=== PATIENT | female | born 1950 | race African-American/Black ===

== ENCOUNTER 2024-04-13 23:11 | Inpatient (IN) | payer MEDICARE, OTHER ==
[~2024-04-13] VITALS: Ht 160 cm; Wt 87.5 kg
[~2024-04-13 23:11] MED LIST: ATEN-42 PO; EXEN2VIA SQ; INSLIS SQ; INSU3INS6 SQ; NIFE90TA69 PO; ROSU20TA2 PO
[2024-04-14] MEDS ORDERED: HEPARIN 5000 UNITS/ML VIAL IV ONE (01:00)
[2024-04-14 01:40] LABS: BASOPHILS % 0.7 % (0.0-2.0); EOSINOPHILS % 1.6 % (0.0-5.0); HEMATOCRIT. 26.6 % (36.0-48.0); HEMOGLOBIN. 8.7 g/dL (12.0-16.0); LYMPHOCYTES % 16.5 % (20.0-50.0); MEAN CORPUSCULAR HEMOGLOBIN 28.9 pg (28.0-32.0); MEAN CORPUSCULAR HGB CONC 32.7 g/dL (31.0-37.0); MEAN CORPUSCULAR VOLUME 88.3 fL (81.0-99.0); MONOCYTES % 9.2 % (2.0-8.0); PLATELET 145 x1000/uL (130-400); RED BLOOD CELL COUNT 3.01 mill/uL (4.2-5.4); RED CELL DISTRIBUTION WIDTH 14.5 % (11.6-14.6); WHITE BLOOD COUNT 5.9 x1000/uL (4.5-11.0)
[2024-04-14 01:48] LABS: POTASSIUM 4.8 mEq/L (3.5-5.1)
[2024-04-14 02:06] LABS: CREATININE 7.2 mg/dL (0.6-1.0); INR 0.9; PARTIAL THROMBOPLASTIN TIME 27.5 sec (23.4-31.0); PROTHROMBIN TIME 10.6 sec (9.6-11.0)
[2024-04-14] MEDS ORDERED: HEPARIN 80 UNITS/KG BOLUS IV NR (02:30)
[2024-04-14] MEDS ORDERED: HEPARIN BOLUS PRN aPTT 37-44 IV (02:30)
[2024-04-14] MEDS: HEPARIN BOLUS PRN aPTT <36 IV (05:50)
[2024-04-14] MEDS: HEPARIN 25,000 UNITS PREMIX 250 ML IV SCH (06:02)
[2024-04-14] MEDS: CLONIDINE 0.1MG TABLET PO NR (06:45)
[2024-04-14] MEDS ORDERED: IOHEXOL-350 100 ML BOTTLE ONE (06:46)
[2024-04-14 07:15] LABS: CLARITY URINE CLEAR (CLEAR); COLOR URINE YELLOW (YELLOW); GLUCOSE URINE NEGATIVE (NEGATIVE); KETONES URINE NEGATIVE (NEGATIVE); LEUKOCYTE ESTERASE URINE NEGATIVE (NEGATIVE); NITRITE URINE NEGATIVE (NEGATIVE); OCCULT BLOOD URINE 1+ (NEGATIVE); PH URINE 7.5 (4.5-8.0); PROTEIN URINE 1+ (NEGATIVE); SPECIFIC GRAVITY URINE 1.011 (1.005-1.030); UROBILINOGEN URINE 0.2 E.U./dL (0.2-1.0)
[2024-04-14 07:34] LABS: SQUAMOUS EPITHELIAL CELL URINE 2+ /lpf (RARE/1+)
[2024-04-14 07:35] LABS: BACTERIA URINE 1+
[2024-04-14 07:37] LABS: RBC URINE 0-2 /hpf (0-2); WBC URINE 0-2 /hpf (0-2)
[2024-04-14 08:00] VITALS: BP 162/51; PULSE 60; PULSE 65; RESP 18; TEMP 35.61396; TEMP 35.6396; O2SAT 100
[2024-04-14 12:00] VITALS: BP 135/88; PULSE 65; RESP 18; TEMP 35.8362; O2SAT 98
[2024-04-14] MEDS ORDERED: ACETAMINOPHEN 325MG TABLET PO PRN (13:30)
[2024-04-14] MEDS ORDERED: ZOLPIDEM TARTRATE 5MG TABLET PO PRN (13:30)
[2024-04-14] MEDS ORDERED: IPRATROPIUM/ALBUTEROL 0.5-3(2.5)MG/3ML NEB NEB PRN (13:30)
[2024-04-14] MEDS ORDERED: ONDANSETRON HCL 4MG/2ML INJ IV PRN (13:30)
[2024-04-14] MEDS ORDERED: DEXTROSE 50% WATER 50ML SYRINGE IV PRN (13:45)
[2024-04-14] MEDS: PANTOPRAZOLE 40MG DR TABLET PO SCH (14:48)
[2024-04-14 15:41] LABS: BASOPHILS % 0.6 % (0.0-2.0); EOSINOPHILS % 1.8 % (0.0-5.0); HEMATOCRIT. 29.1 % (36.0-48.0); HEMOGLOBIN. 9.4 g/dL (12.0-16.0); LYMPHOCYTES % 20.7 % (20.0-50.0); MEAN CORPUSCULAR HEMOGLOBIN 28.7 pg (28.0-32.0); MEAN CORPUSCULAR HGB CONC 32.4 g/dL (31.0-37.0); MEAN CORPUSCULAR VOLUME 88.5 fL (81.0-99.0); MEAN PLATELET VOLUME 10.8 fl (7.4-10.4); MONOCYTES % 7.3 % (2.0-8.0); NEUTROPHILS % 69.6 % (40.0-76.0); PLATELET 146 x1000/uL (130-400); RED BLOOD CELL COUNT 3.29 mill/uL (4.2-5.4); RED CELL DISTRIBUTION WIDTH 14.3 % (11.6-14.6); WHITE BLOOD COUNT 4.6 x1000/uL (4.5-11.0)
[2024-04-14 15:49] LABS: POTASSIUM 5.2 mEq/L (3.5-5.1)
[2024-04-14 15:51] LABS: CALCIUM 9.8 mg/dL (8.7-10.4)
[2024-04-14 16:00] VITALS: BP 157/52; PULSE 62; RESP 18; TEMP 35.72508; O2SAT 99
[2024-04-14 16:02] LABS: CREATININE 6.9 mg/dL (0.6-1.0)
[2024-04-14] MEDS: BLOOD SUGAR DIAGNOSTIC STRIP TEST SCH (17:20)
[2024-04-14] MEDS: INSULIN LISPRO 100 UNITS/ML SUBCUT SCH (19:07)
[2024-04-14 20:00] VITALS: BP 183/67; PULSE 68; RESP 18; TEMP 36.3918; O2SAT 100
[2024-04-14] MEDS: CLONIDINE 0.1MG TABLET PO PRN (22:10)
[2024-04-14 23:40] VITALS: PULSE 68; RESP 19; TEMP 36.3918; O2SAT 100
[2024-04-14 23:45] VITALS: BP 183/67; PULSE 68; RESP 18; TEMP 36.3918; O2SAT 100
[2024-04-15] VITALS (7 sets, daily range): BP systolic 130–153; BP diastolic 54–70; PULSE 60–98; RESP 14–19; TEMP 36.3918–36.78072; O2SAT 98–100
[2024-04-15] MEDS: DEXT 5%/0.9% NACL 1,000 ML IV SCH (00:01)
[2024-04-15 08:16] LABS: BASOPHILS % 0.7 % (0.0-2.0); EOSINOPHILS % 2.3 % (0.0-5.0); HEMATOCRIT 29.6 % (36.0-48.0); HEMATOCRIT. 29.6 % (36.0-48.0); HEMOGLOBIN 9.2 g/dL (12.0-16.0); HEMOGLOBIN. 9.2 g/dL (12.0-16.0); LYMPHOCYTES % 18.9 % (20.0-50.0); MEAN CORPUSCULAR HEMOGLOBIN 27.8 pg (28.0-32.0); MEAN CORPUSCULAR HGB CONC 31.3 g/dL (31.0-37.0); MEAN CORPUSCULAR VOLUME 88.9 fL (81.0-99.0); MEAN PLATELET VOLUME 10.6 fl (7.4-10.4); MONOCYTES % 8.6 % (2.0-8.0); NEUTROPHILS % 69.5 % (40.0-76.0); PLATELET 198 x1000/uL (130-400); RED BLOOD CELL COUNT 3.33 mill/uL (4.2-5.4); RED CELL DISTRIBUTION WIDTH 14.7 % (11.6-14.6); WHITE BLOOD COUNT 6.1 x1000/uL (4.5-11.0)
[2024-04-15 08:20] LABS: POTASSIUM 4.6 mEq/L (3.5-5.1)
[2024-04-15 08:21] LABS: CALCIUM 9.6 mg/dL (8.7-10.4)
[2024-04-15 08:31] LABS: CREATININE 6.8 mg/dL (0.6-1.0)
[2024-04-15] MEDS: ATENOLOL 25MG TABLET PO SCH (10:24)
[2024-04-15] MEDS: NIFEDIPINE XL 90MG TAB PO SCH (10:25)
[2024-04-15] MEDS ORDERED: THROMBIN (BOVINE) 5000 UNITS/VIAL TOP ONE (11:56)
[2024-04-15 12:35] LABS: THYROID STIMULATING HORMONE 8.66 uIU/mL (0.55-4.78)
[2024-04-15] MEDS: SEVELAMER CARBONATE 800 MG TABLET PO SCH (12:50)
[2024-04-15] MEDS ORDERED: FENTANYL CITRATE/PF 50MCG/ML 2ML VIAL ONE (13:12)
[2024-04-15] MEDS ORDERED: PROPOFOL 200MG/20ML VIAL IV ONE (13:12)
[2024-04-15] MEDS ORDERED: CEFAZOLIN SODIUM 1000MG/VIAL ONE (13:16)
[2024-04-15] MEDS ORDERED: EPHEDRINE SULFATE 50MG/ML VIAL ONE (13:16)
[2024-04-15] MEDS ORDERED: LIDOCAINE HCL 1% 20ML VIAL ONE (14:16)
[2024-04-15] MEDS ORDERED: GLYCOPYRROLATE 0.2 MG/ML 2ML VIAL ONE (14:26)
[2024-04-15] MEDS ORDERED: PHENYLEPHRINE HCL 10MG/ML 1ML IV ONE (14:35)
[2024-04-15] MEDS ORDERED: GENTAMICIN/NS IRRIGATION 500 ML IR NR (15:00)
[2024-04-15] MEDS ORDERED: ALTEPLASE 2MG/VIAL ONE (15:07)
[2024-04-15] MEDS ORDERED: STERILE WATER FOR INJECTION 10ML VIAL ONE (15:08)
[2024-04-15] MEDS ORDERED: IODIXANOL 320MG/ML 100 ML BOTTLE IV ONE (15:35)
[2024-04-15] MEDS ORDERED: MORPHINE SULFATE 4 MG/ML INJ (FOR IV/IM USE) IV PRN (17:00)
[2024-04-15] MEDS: ENOXAPARIN 30MG/0.3ML SYR SUBCUT SCH (17:00)
[2024-04-15] MEDS ORDERED: NALOXONE HCL 0.4MG/ML VIAL IV PRN (20:30)
[2024-04-15] MEDS: ATORVASTATIN CALCIUM 20MG TABLET PO SCH (20:38)
[2024-04-15] MEDS: EPOETIN ALFA-EPBX 4,000 UNIT/ML VIAL SUBCUT SCH (21:00)
[2024-04-16] VITALS (9 sets, daily range): BP systolic 102–135; BP diastolic 58–89; PULSE 64–79; RESP 15–22; TEMP 36.3918–36.9474; O2SAT 99–100
[2024-04-16 06:52] LABS: CALCIUM 9.1 mg/dL (8.7-10.4); POTASSIUM 5.8 mEq/L (3.5-5.1)
[2024-04-16 07:26] LABS: HEMATOCRIT 26.3 % (36.0-48.0); HEMATOCRIT. 26.3 % (36.0-48.0); MEAN CORPUSCULAR HGB CONC 30.4 g/dL (31.0-37.0); MEAN CORPUSCULAR VOLUME 92.1 fL (81.0-99.0); MEAN PLATELET VOLUME 11.4 fl (7.4-10.4); PLATELET 171 x1000/uL (130-400); RED BLOOD CELL COUNT 2.85 mill/uL (4.2-5.4); RED CELL DISTRIBUTION WIDTH 15.4 % (11.6-14.6); WHITE BLOOD COUNT 8.1 x1000/uL (4.5-11.0)
[2024-04-16 07:28] LABS: DIFFERENTIAL COMMENT 1
[2024-04-16] MEDS: FOLIC ACID/VITAMIN B COMP W-C TABLET PO SCH (08:17)
[2024-04-16 08:21] LABS: CREATININE 7.7 mg/dL (0.6-1.0)
[2024-04-16] MEDS ORDERED: NON FORMULARY PATIENT HOME MED XX SCH (08:30)
[2024-04-16 10:42] LABS: POTASSIUM 5.3 mEq/L (3.5-5.1)
[2024-04-16 10:43] LABS: CALCIUM 9.4 mg/dL (8.7-10.4)
[2024-04-16] MEDS: SODIUM ZIRCONIUM CYCLOSILICATE 10GM/PACKET PO NR (11:01)
[2024-04-16] MEDS: APIXABAN 5 MG TABLET PO SCH (11:02)
[2024-04-16] MEDS: INSULIN LISPRO 100 UNITS/ML SUBCUT NR (11:04)
[2024-04-16 11:26] LABS: CREATININE 7.8 mg/dL (0.6-1.0)
[2024-04-16] MEDS ORDERED: ALBUTEROL (0.5%) 2.5MG/0.5ML NEB HHN NR (12:00)
[2024-04-16] MEDS ORDERED: DEXTROSE 50% WATER 50ML SYRINGE IV PRN (12:15)
[2024-04-16] MEDS: INSULIN GLARGINE 100 UNITS/ML SUBCUT SCH ×2 (12:55→17:50)
[2024-04-16] MEDS: INSULIN LISPRO 100 UNITS/ML SUBCUT SCH ×2 (12:56→17:51)
[2024-04-16] MEDS: BLOOD SUGAR DIAGNOSTIC STRIP TEST SCH (16:30)
[2024-04-16 17:12] LABS: PLATELET ESTIMATE NORMAL
[2024-04-17] VITALS (8 sets, daily range): BP systolic 101–145; BP diastolic 40–100; PULSE 60–72; RESP 14–19; TEMP 36.44736–36.78072; O2SAT 96–100
[2024-04-17 06:51] LABS: POTASSIUM 4.5 mEq/L (3.5-5.1)
[2024-04-17 06:52] LABS: CALCIUM 8.9 mg/dL (8.7-10.4)
[2024-04-17 07:27] LABS: CREATININE 8.7 mg/dL (0.6-1.0)
[2024-04-17] MEDS: LACTULOSE 20G/30ML UDC PO SCH (11:15)
[2024-04-17] MEDS: DOCUSATE SODIUM 100MG CAPSULE PO SCH (11:15)
== END 2024-04-17 18:15 | disposition home or self-care (01) | DRG 270 ==
LOC: ER 23:11 → 6EST 04-14 03:07 → EDBEDREQTM 04-14 03:10 → EDBEDREQ 04-14 03:10 → 3WST 04-15 20:23
PROVIDERS: ADMIT Internal Medicine; ATTEND Internal Medicine
PROC: 3E1M39Z Irrigation of Peritoneal Cavity using Dialysate, Percutaneous Approach (ICD-10-PCS; 2024-04-14)
PROC: 047S3ZZ Dilation of Left Posterior Tibial Artery, Percutaneous Approach (ICD-10-PCS; principal; 2024-04-15)
PROC: 04CQ3ZZ Extirpation of Matter from Left Anterior Tibial Artery, Percutaneous Approach (ICD-10-PCS; 2024-04-15)
PROC: 047Q3ZZ Dilation of Left Anterior Tibial Artery, Percutaneous Approach (ICD-10-PCS; 2024-04-15)
PROC: 04CL3ZZ Extirpation of Matter from Left Femoral Artery, Percutaneous Approach (ICD-10-PCS; 2024-04-15)
PROC: B41G1ZZ Fluoroscopy of Left Lower Extremity Arteries using Low Osmolar Contrast (ICD-10-PCS; 2024-04-15)
PROC: 3E05317 Introduction of Other Thrombolytic into Peripheral Artery, Percutaneous Approach (ICD-10-PCS; 2024-04-15)
PROC: 3E1M39Z Irrigation of Peritoneal Cavity using Dialysate, Percutaneous Approach (ICD-10-PCS; 2024-04-15)
PROC: 3E1M39Z Irrigation of Peritoneal Cavity using Dialysate, Percutaneous Approach (ICD-10-PCS; 2024-04-16)
PROC: 5A1D70Z Performance of Urinary Filtration, Intermittent, Less than 6 Hours Per Day (ICD-10-PCS; 2024-04-17)
DX: E11.51 Type 2 diabetes mellitus with diabetic peripheral angiopathy without gangrene (principal); N18.6 End stage renal disease; E87.1 Hypo-osmolality and hyponatremia; I12.0 Hypertensive chronic kidney disease with stage 5 chronic kidney disease or end stage renal disease; C56.9 Malignant neoplasm of unspecified ovary; E87.20 Acidosis, unspecified; E87.5 Hyperkalemia; I10 Essential (primary) hypertension; D64.9 Anemia, unspecified; E11.40 Type 2 diabetes mellitus with diabetic neuropathy, unspecified; R26.9 Unspecified abnormalities of gait and mobility; R53.81 Other malaise; D72.829 Elevated white blood cell count, unspecified; R00.0 Tachycardia, unspecified; E78.5 Hyperlipidemia, unspecified; Z87.891 Personal history of nicotine dependence; Z99.2 Dependence on renal dialysis; Z79.899 Other long term (current) drug therapy; Z82.49 Family history of ischemic heart disease and other diseases of the circulatory system; Z83.3 Family history of diabetes mellitus
CPT/HCPCS: 36415; 37187; 37188; 37228; 72191; 73706; 75710; 80048; 80061; 81003; 82533; 82962; 83036; 84443; 85025; 85027; 85347; 88304; 90935; 90945; 93306; 93970; 93971; 99285; A4216; C1725; C1769; C1887; C1893; J0690; J0885; J1644; J1650; J1815; J2704; J2997; J3010; J3490; J7042; Q9967